=== PATIENT | female | born 1995 | race Caucasian/White ===

== ENCOUNTER 2017-09-06 08:08 | Emergency (ER) | payer OTHER ==
[2017-09-06 08:13] VITALS: BP 118/55; BMI 21.4
[2017-09-06] MEDS ORDERED: NS 1000 ML 1,000 ML IV STA (09:06)
[2017-09-06] MEDS ORDERED: ZOFRAN INJ 4 MG VIAL IVP ONE (09:15)
[2017-09-06] MEDS ORDERED: NS 1000 ML 1,000 ML ONE (09:18)
[2017-09-06] MEDS ORDERED: ZOFRAN INJ 4 MG VIAL ONE (09:19)
[2017-09-06 09:31] LABS: BASOPHILS # (AUTO) 0.1 X10^3/uL (0.0-0.1); BASOPHILS % (AUTO) 1.4 % (0.2-1.0); EOSINOPHILS % (AUTO) 0.5 % (0.9-2.9); LYMPHOCYTES # (AUTO) 1.4 X10^3/uL (1.3-2.9); LYMPHOCYTES % (AUTO) 19.4 % (21.0-51.0); MEAN CORPUSCULAR HEMOGLOBIN 28.9 pg (27.0-34.0); MEAN CORPUSCULAR HGB CONC 35.3 g/dL (33.0-35.0); MEAN CORPUSCULAR VOLUME 81.8 fL (80.0-100.0); MEAN PLATELET VOLUME 8.4 fL (7.4-11.0); MONOCYTES # (AUTO) 0.4 x10^3/uL (0.3-0.8); MONOCYTES % (AUTO) 4.9 % (0.0-13.0); NEUTROPHILS # (AUTO) 5.3 x10^3/uL (2.2-4.8); NEUTROPHILS % (AUTO) 73.8 % (42.0-75.0); PLATELET COUNT 206 X10^3/uL (150.0-450.0); RED BLOOD COUNT 4.16 X10^6/uL (3.5-5.4); RED CELL DISTRIBUTION WIDTH 13.5 % (11.6-16.5); WHITE BLOOD COUNT 7.2 X10^3/uL (3.6-10.0)
--- NOTE | 2017-09-06 09:34 | DR.NAUSEAF ---
HPI - Primary Care Physician Primary Care Physician: NFD - Complaints Chief Complaint:: PT C/O BEING SICK ALL LAST WEEK AND NOT BEING ABLE TO KEEP ANYTHING DOWN FOR THE PAST 4 DAYS AND THAT SHE WAS VOMITTING UP BLOOD LAST NIGHT . - Reviewed Nurses Notes Reviewed: Yes - Source History Provided: Patient - Mode of Arrival Mode of Arrival: Ambulatory - Timing Onset of Chief Complaint: 09/01/17 PMH - PMH Past Medical History: No Past Surgical History: No - Family History History of Family Medical Conditions: Yes Family Medical History: Diabetes Mellitus, Hypertension - Social History Does patient currently use any type of tobacco product: Yes Have you used tobacco products in the last 12 months: Yes Type of Tobacco Use: Cigarettes How many years tobacco product used: 4 Does any household member use tobacco: No Alcohol Use: None Do you use any recreational Drugs:: No Lives With: Family Lives Where: Home - infectious screening In the last 2 months have you had wt loss of >10#?: NO Have you had fever, night sweats or hemotysis?: No Have you traveled outside the country in the last 6 months?: No Isolation: Standard PE - Vital Signs Vitals: Temperature 97.0 F Pulse Rate 86 Respiratory Rate 18 Blood Pressure [Left Arm] 107/62 Blood Pressure 118/55 O2 Sat by Pulse Oximetry 98 ROR - Labs Reviewed Result Diagrams: 09/06/17 09:25 09/06/17 09:25 Laboratory: WBC 7.2 X10^3/uL (3.6-10.0) 09/06/17 09:25 RBC 4.16 X10^6/uL (3.5-5.4) 09/06/17 09:25 Hgb 12.0 g/dL (12.0-16.0) 09/06/17 09:25 Hct 34.0 % (36.0-47.0) L 09/06/17 09:25 MCV 81.8 fL (80.0-100.0) 09/06/17 09:25 MCH 28.9 pg (27.0-34.0) 09/06/17 09:25 MCHC 35.3 g/dL (33.0-35.0) H 09/06/17 09:25 RDW 13.5 % (11.6-16.5) 09/06/17 09:25 Plt Count 206 X10^3/uL (150.0-450.0) 09/06/17 09:25 MPV 8.4 fL (7.4-11.0) 09/06/17 09:25 Neut % 73.8 % (42.0-75.0) 09/06/17 09:25 Lymph % 19.4 % (21.0-51.0) L 09/06/17 09:25 [place] % 4.9 % (0.0-13.0) 09/06/17 09:25 Eos % 0.5 % (0.9-2.9) L 09/06/17 09:25 Baso % 1.4 % (0.2-1.0) H 09/06/17 09:25 Neut # 5.3 x10^3/uL (2.2-4.8) H 09/06/17 09:25 Lymph # 1.4 X10^3/uL (1.3-2.9) 09/06/17 09:25 [place] # 0.4 x10^3/uL (0.3-0.8) 09/06/17 09:25 Eos # 0.0 x10^3/uL (0.0-0.2) 09/06/17 09:25 Baso # 0.1 X10^3/uL (0.0-0.1) 09/06/17 09:25 Absolute Nucleated RBC 0.1 /100WBC 09/06/17 09:25 - Discharge Plan Condition: Stable - Follow ups/Referrals Follow ups/Referrals: NFD,None [Primary Care Provider] - 3 days - Instructions
--- NOTE | 2017-09-06 09:36 | DR.NAUSEAF ---
HPI - Primary Care Physician Primary Care Physician: NFD - HPI Comment HPI Comment: Other family members sick but they're all better now. Mostly [place] with a little diarrhea. Pt states she's , doesn't know how far along. No menses since stopping depo - Complaints Chief Complaint:: PT C/O BEING SICK ALL LAST WEEK AND NOT BEING ABLE TO KEEP ANYTHING DOWN FOR THE PAST 4 DAYS AND THAT SHE WAS VOMITTING UP BLOOD LAST NIGHT . - Reviewed Nurses Notes Reviewed: Yes - Source History Provided: Patient - Mode of Arrival Mode of Arrival: Ambulatory - Timing Onset of Chief Complaint: 09/01/17 (about 1 wk ago) - Duration Duration: 8 d - Severity Number of episodes of vomiting over last 24 hours: 4 - Context Onset: Spontaneous, After Eating Recent: Contact Exposure : Yes Last menstrual period:: see above History of: Contact Exposure - Quality Quality: Bloody - Associated Signs and Symptoms Abdominal Pain Quality: Cramping Abdominal Pain Location: Diffuse Symptoms: Abdominal Pain, Diarrhea - Other History Other History: none, pt believes she's but doesn't know dates PMH - PMH Past Medical History: No Past Medical History Comment: pt denies any sig PMH Past Surgical History: No - Family History History of Family Medical Conditions: Yes Family Medical History: Diabetes Mellitus, Hypertension - Social History Does patient currently use any type of tobacco product: Yes Have you used tobacco products in the last 12 months: Yes Type of Tobacco Use: Cigarettes How many years tobacco product used: 4 Does any household member use tobacco: No Alcohol Use: None Do you use any recreational Drugs:: No Lives With: Family Lives Where: Home - infectious screening In the last 2 months have you had wt loss of >10#?: NO Have you had fever, night sweats or hemotysis?: No Have you traveled outside the country in the last 6 months?: No Isolation: Standard ROS - Review of Systems Constitutional: See HPI, Loss of Appetite. negative: Chills, Fever Eyes: No Symptoms Reported ENTM: No Symptoms Reported Respiratoy: No Symptoms Reported Cardiovascular: No Symptoms Reported Gastrointestinal/Abdominal: Abdominal Pain, Diarrhea, Nausea, Vomiting Genitourinary: No Symptoms Reported Neurological: No Symptoms Reported Musculoskeletal: No Symptoms Reported Integumentary: No Symptoms Reported Hematologic/Lymphatic: No Symptoms Reported Endocrine: No Symptoms Reported Psychiatric: No Symptoms Reported All Other Systems: Reviewed and Negative PE - Vital Signs Vitals: Temperature 97.0 F Pulse Rate 86 Respiratory Rate 18 Blood Pressure [Left Arm] 107/62 Blood Pressure 118/55 O2 Sat by Pulse Oximetry 98 - General Limitations: No Limitations General Appearance: Alert, In No Apparent Distress - Head Head Exam: Normal Inspection - Eyes Eye exam: Normal Appearance - ENT ENT Exam: Normal Exam - Neck Neck Exam: Normal Inspection - Chest Chest Inspection: Normal Inspection - Respiratory Respiratory Exam: Normal Lung Sounds Bilat Respiratory Exam: Bilateral Clear to Auscultation - Cardiovascular Cardiovascular Exam: Regular Rate, Normal Rhythm, Normal Heart Sounds - Abdominal Exam Abdominal Exam: Other (Gravid, fundus almost to umbilicus. Abd exam o/w benign) - Back Back Exam: negative: (R) CVA Tenderness, (L) CVA Tenderness - Neurologic Neurological Exam: Alert, Oriented X3 - Psychiatric Psychiatric Exam: Normal Affect, Normal Mood - Skin Skin Exam: Warm, Dry, Intact, Normal Color ROR - Labs Reviewed Result Diagrams: 09/06/17 09:25 09/06/17 09:25 Laboratory: WBC 7.2 X10^3/uL (3.6-10.0) 09/06/17 09:25 RBC 4.16 X10^6/uL (3.5-5.4) 09/06/17 09:25 Hgb 12.0 g/dL (12.0-16.0) 09/06/17 09:25 Hct 34.0 % (36.0-47.0) L 09/06/17 09:25 MCV 81.8 fL (80.0-100.0) 09/06/17 09:25 MCH 28.9 pg (27.0-34.0) 09/06/17 09:25 MCHC 35.3 g/dL (33.0-35.0) H 09/06/17 09:25 RDW 13.5 % (11.6-16.5) 09/06/17 09:25 Plt Count 206 X10^3/uL (150.0-450.0) 09/06/17 09:25 MPV 8.4 fL (7.4-11.0) 09/06/17 09:25 Neut % 73.8 % (42.0-75.0) 09/06/17 09:25 Lymph % 19.4 % (21.0-51.0) L 09/06/17 09:25 [place] % 4.9 % (0.0-13.0) 09/06/17 09:25 Eos % 0.5 % (0.9-2.9) L 09/06/17 09:25 Baso % 1.4 % (0.2-1.0) H 09/06/17 09:25 Neut # 5.3 x10^3/uL (2.2-4.8) H 09/06/17 09:25 Lymph # 1.4 X10^3/uL (1.3-2.9) 09/06/17 09:25 [place] # 0.4 x10^3/uL (0.3-0.8) 09/06/17 09:25 Eos # 0.0 x10^3/uL (0.0-0.2) 09/06/17 09:25 Baso # 0.1 X10^3/uL (0.0-0.1) 09/06/17 09:25 Absolute Nucleated RBC 0.1 /100WBC 09/06/17 09:25 Sodium 136 mmol/L (136-145) 09/06/17 09:25 Corrected Sodium TNP 09/06/17 09:25 Potassium 3.0 mmol/L (3.5-5.1) L* 09/06/17 09:25 Chloride 101 mmol/L (98-107) 09/06/17 09:25 Carbon Dioxide 23.1 mmol/L (21-32) 09/06/17 09:25 BUN 6 mg/dL (7-18) L 09/06/17 09:25 Creatinine 0.42 mg/dL (0.55-1.02) L 09/06/17 09:25 Est GFR (MDRD) Af Amer > 60 (>60) 09/06/17 09:25 Est GFR (MDRD) Non-Af > 60 (>60) 09/06/17 09:25 Glucose 71 mg/dL (65-99) 09/06/17 09:25 Calcium 8.0 mg/dL (8.5-10.1) L 09/06/17 09:25 Corrected Calcium 9.1 mg/dL (8.5-10.1) 09/06/17 09:25 Total Bilirubin 0.80 mg/dL (0.2-1.0) 09/06/17 09:25 AST 26 Units/L (15-37) 09/06/17 09:25 ALT 21 Units/L (12-78) 09/06/17 09:25 Alkaline Phosphatase 204 Units/L (46-116) H 09/06/17 09:25 Total Protein 7.0 g/dL (6.4-8.2) 09/06/17 09:25 Albumin 2.6 g/dL (3.4-5.0) L 09/06/17 09:25 Globulin 4.4 g/dL (2.5-4.5) 09/06/17 09:25 Albumin/Globulin Ratio 0.6 Ratio (1.1-2.1) L 09/06/17 09:25 Amylase 30 Units/L (25-115) 09/06/17 09:25 Lipase 101 Units/L (73-393) 09/06/17 09:25 - Diagnosis Discharge Problem: Narrative Support Text: Feels better after IVF, Zofran. Nausea gone, pt feels hungry. Pt found to be 34 weeks . Normal US in ER this morning, [employer] 10/15/17. Pt wants to follow with Dr Guzman, will make referral. No care to date. - Discharge Plan Disposition: HOME, SELF-CARE Condition: Stable Prescriptions: Ondansetron [Zofran Odt] 4 mg PO Q8H PRN #12 tab PRN Reason: Nausea/Vomiting - Follow ups/Referrals Follow ups/Referrals: NFD,None [Primary Care Provider] - 3 days - Instructions Instructions: Nausea, Adult, Third Trimester of , [id number] Additional Instructions: PT HAS FLU WITH MARY LOPEZ ON 09/08/17 AT 1030 ,,,, Additional Notes - Additional Notes Additional Notes: d/c home with zofran ODT Rx. Pt urged to keep appt w/Dr Guzman
[2017-09-06 09:40] LABS: BLOOD UREA NITROGEN 6 mg/dL (7-18); CARBON DIOXIDE 23.1 mmol/L (21-32); CHLORIDE 101 mmol/L (98-107); CREATININE 0.42 mg/dL (0.55-1.02); SODIUM 136 mmol/L (136-145); eGFR BLACK RACES > 60 (>60); eGFR NON BLACK RACES > 60 (>60)
[2017-09-06 09:43] LABS: ALANINE AMINOTRANSFERASE 21 Units/L (12-78); ALBUMIN 2.6 g/dL (3.4-5.0); ALKALINE PHOSPHATASE 204 Units/L (46-116); AMYLASE 30 Units/L (25-115); ASPARTATE AMINO TRANSFERASE 26 Units/L (15-37); COR CA(FOR HYPOALB) 9.1 mg/dL (8.5-10.1); LIPASE 101 Units/L (73-393)
--- NOTE | 2017-09-06 10:31 | US ---
HISTORY: Nausea, vomiting, and flu-like symptoms. Study: OB ultrasound greater than 14 weeks Comparison: None. Technique: Multiple grayscale and color flow Doppler images of the pelvis were obtained with focused evaluation of the fetus. Findings: A viable single intrauterine is identified with heart tones of 126 beats per minute. A cephalic presentation is observed with a posterior and fundal placenta. Normal amniotic fluid vol ume is observed. Evaluation of the anatomy including the stomach, kidneys, urinary bladder, and four-chamber heart are unremarkable. The extremities and spine are normal in their sonographic appe arance. A three-vessel cord is observed. No intracranial abnormality can be identified. Value Estimated Gestational Age BPD 8.70 cm 35 weeks 0 days HC 31.2 cm 35 weeks 0 days AC 30.2 cm 34 weeks 1 day FL 6.60 cm 34 weeks 0 days IMPRESSION: A viable single intrauterine with an average ultrasound age of 34 weeks 3 days correspond t o an estimated date of delivery of October 15, 2017. No anatomical abnormalities can be identified. Reported By:
[2017-09-06] MEDS ORDERED: K-DUR TAB 20 MEQ PO ONE (10:50)
[2017-09-06] MEDS ORDERED: K-DUR TAB 20 MEQ PO SCH (11:00)
== END 2017-09-06 10:50 | disposition home or self-care (01) ==
LOC: ER 08:20
DX: R11.2 Nausea with vomiting, unspecified (principal); T75.89XA Other specified effects of external causes, initial encounter; X58.XXXA Exposure to other specified factors, initial encounter; Y93.89 Activity, other specified; Y92.89 Other specified places as the place of occurrence of the external cause
CPT/HCPCS: 36415; 76815; 80053; 82150; 83690; 85025; 96365; 96374; 99282; 99283; A4216; A4222; J2405

== ENCOUNTER 2017-09-22 22:17 | Emergency (ER) | payer OTHER ==
[2017-09-22 22:35] VITALS: BMI 23.6
[2017-09-22 23:04] LABS: BILIRUBIN,URINE NEGATIVE (NEGATIVE); BLOOD/HEMOGLOBIN,URINE NEGATIVE (NEGATIVE); GLUCOSE, URINE NEGATIVE (NEGATIVE); KETONES,URINE NEGATIVE (NEGATIVE); LEUKOCYTE ESTERASE ,URINE 2+ (NEGATIVE); NITRITES,URINE NEGATIVE (NEGATIVE); PROTEIN,URINE NEGATIVE (NEGATIVE); UROBILINOGEN,URINE NORMAL (NORMAL)
[2017-09-22 23:12] LABS: APPEARANCE,URINE CLEAR (CLEAR); COLOR,URINE PALE YELLOW (YELLOW)
[2017-09-22 23:31] VITALS: BP 105/63
--- NOTE | 2017-09-26 09:41 | DR.PREG ---
HPI - PCP Primary Care Physician: MARY - Chief Complaint Chief Complaint:: 36 AND 5 OB G 4 P 3 A O HERE C/O HAVING CONTRACTION EVERY 10 - 15 MINUTES DENIES BLEEDING OR DISCHARGE NO ROM PT PLACED ON [facility] PT STATES" I STARTED HURTING AFTER I ATE - Source History Provided: Patient - Mode of Arrival Mode of Arrival: Ambulatory - Context : 4 Para: 3 - Timing Onset of Chief Complaint: 09/22/17 Pain: None - Duration Pain Strength: Weak PMH - PMH Past Medical History: No Past Surgical History: No - Family History History of Family Medical Conditions: Yes Family Medical History: Diabetes Mellitus, Hypertension - Social History Type of Tobacco Use: Cigarettes Does any household member use tobacco: Yes Do you use any recreational Drugs:: No Lives With: Family Lives Where: Home - infectious screening In the last 2 months have you had wt loss of >10#?: NO Have you had fever, night sweats or hemotysis?: No Have you traveled outside the country in the last 6 months?: No Isolation: Standard PE - Vital Signs Vitals: Temperature 98.1 F Pulse Rate [Left Brachial] 82 Pulse Rate 95 Respiratory Rate 18 Blood Pressure [Left Arm] 105/63 Blood Pressure 110/71 O2 Sat by Pulse Oximetry 100 ROR - Labs Reviewed Laboratory: Specimen Type Clean catch urine 09/22/17 22:31 Urine Color Pale yellow (YELLOW) 09/22/17 22:31 Urine Appearance Clear (CLEAR) 09/22/17 22:31 Urine pH 7.0 (5.0 - 8.0) 09/22/17 22:31 Ur Specific [place] 1.005 (1.000-1.030) 09/22/17 22:31 Urine Protein Negative (NEGATIVE) 09/22/17 22:31 Urine Glucose (UA) Negative (NEGATIVE) 09/22/17 22:31 Urine Ketones Negative (NEGATIVE) 09/22/17 22:31 Urine Occult Blood Negative (NEGATIVE) 09/22/17 22:31 Urine Nitrite Negative (NEGATIVE) 09/22/17 22:31 Urine Bilirubin Negative (NEGATIVE) 02 22:31 Urine Urobilinogen Normal (NORMAL) 09/22/17 22:31 Ur Leukocyte Esterase 2+ (NEGATIVE) 09/22/17 22:31 Urinalysis Comment Dip only ordered 09/22/17 22:31 - Discharge Plan Disposition: 01 HOME, SELF-CARE Condition: Stable - Follow ups/Referrals Follow ups/Referrals: CLARISA HERNANDEZ [Primary Care Provider] - 3 days - Instructions Instructions: Third Trimester of , [id number] Additional Instructions: INCREASE WATER INTAKE. RETURN TO ER WHEN WATER BREAKS, VAGINAL BLEEDING MORE THAN 2 PADS IN A HOUR OR CONTRACTION EVERY 3 - 5 MINUTES OVER A 30 MINUTE PERIOD. CONTRACTION WILL COME STEADY AND CONTINUE TO GET STRONGER IN ACTIVE LABOR. FOLLOW UP WITH DR. HERNANDEZ RETURN TO ER IF ANY OR ALL OF THE ABOVE COMPLAINTS
== END 2017-09-22 23:30 | disposition home or self-care (01) ==
LOC: ER 22:35
DX: O60.03 Preterm labor without delivery, third trimester (principal)
CPT/HCPCS: 81003; 99284

== ENCOUNTER 2017-09-23 09:35 | Emergency (ER) | payer OTHER ==
[2017-09-23 09:40] VITALS: BP 112/69; BMI 23.6
[2017-09-23 10:20] LABS: BILIRUBIN,URINE NEGATIVE (NEGATIVE); BLOOD/HEMOGLOBIN,URINE NEGATIVE (NEGATIVE); GLUCOSE, URINE NEGATIVE (NEGATIVE); KETONES,URINE NEGATIVE (NEGATIVE); LEUKOCYTE ESTERASE ,URINE 2+ (NEGATIVE); NITRITES,URINE NEGATIVE (NEGATIVE); PROTEIN,URINE NEGATIVE (NEGATIVE); UROBILINOGEN,URINE NORMAL (NORMAL)
[2017-09-23 10:26] LABS: APPEARANCE,URINE CLEAR (CLEAR); COLOR,URINE YELLOW (YELLOW)
[2017-09-23 10:34] LABS: AMNISURE ROM TEST NO MEMBRANES RUPTURE (NO RUPTURE)
[2017-09-23 10:39] LABS: RBC,URINE 0-2 /HPF (NEGATIVE)
[2017-09-23 10:40] LABS: BACTERIA,URINE NEGATIVE /HPF (NEGATIVE); SQUAMOUS EPITHELIAL CELL,UR RARE /HPF (NEGATIVE); TRICHOMONAS,URINE FEW /HPF (NEGATIVE)
== END 2017-09-23 10:51 | disposition home or self-care (01) ==
LOC: ER 09:49
DX: M54.5 Low back pain (principal); Z3A.37 37 weeks gestation of pregnancy
CPT/HCPCS: 81001; 84112; 99284

== ENCOUNTER 2017-10-02 15:17 | Emergency (ER) | payer OTHER ==
[2017-10-02 15:23] VITALS: BP 119/79; BMI 22.6
[2017-10-02 15:48] LABS: BILIRUBIN,URINE NEGATIVE (NEGATIVE); BLOOD/HEMOGLOBIN,URINE NEGATIVE (NEGATIVE); GLUCOSE, URINE NEGATIVE (NEGATIVE); KETONES,URINE NEGATIVE (NEGATIVE); LEUKOCYTE ESTERASE ,URINE 2+ (NEGATIVE); NITRITES,URINE NEGATIVE (NEGATIVE); PROTEIN,URINE NEGATIVE (NEGATIVE); UROBILINOGEN,URINE NORMAL (NORMAL)
[2017-10-02 16:01] LABS: APPEARANCE,URINE CLEAR (CLEAR); COLOR,URINE YELLOW (YELLOW); RBC,URINE 0-1 /HPF (NEGATIVE)
[2017-10-02 16:02] LABS: BACTERIA,URINE TRACE /HPF (NEGATIVE); SQUAMOUS EPITHELIAL CELL,UR FEW /HPF (NEGATIVE); TRICHOMONAS,URINE FEW /HPF (NEGATIVE)
--- NOTE | 2017-10-03 02:14 | DR.GENAD ---
HPI - PCP Primary Care Physician: Hernandez - Complaint/Symptoms Chief Complaint:: "My back has been hurting for about a week now. For the past 2 or 3 days I have been having a lot of pressure on and off in my abdomen. I haven't had any bleeding or spotting. I am 38 weeks right now." - Source History Provided: Patient - Mode of Arrival Mode of Arrival: Ambulatory - Timing Onset of Chief Complaint: 09/29/17 PMH - PMH Past Medical History: No Past Surgical History: No Surgical History: No History - Family History History of Family Medical Conditions: Yes Family Medical History: Diabetes Mellitus, Hypertension - Social History Does patient currently use any type of tobacco product: Yes Have you used tobacco products in the last 12 months: Yes Type of Tobacco Use: Cigarettes Does any household member use tobacco: Yes Alcohol Use: None Do you use any recreational Drugs:: No Lives With: Family Lives Where: Home - infectious screening In the last 2 months have you had wt loss of >10#?: NO Have you had fever, night sweats or hemotysis?: No Have you traveled outside the country in the last 6 months?: No Isolation: Standard PE - Vital Signs Vitals: Temperature 96.8 F Pulse Rate 98 Respiratory Rate 18 Blood Pressure [Left Arm] 105/63 Blood Pressure 119/79 O2 Sat by Pulse Oximetry 98 ROR - Labs Reviewed Laboratory: Specimen Type Clean catch urine 10/02/17 15:42 Urine Color Yellow (YELLOW) 10/02/17 15:42 Urine Appearance Clear (CLEAR) 10/02/17 15:42 Urine pH 8.0 (5.0 - 8.0) 10/02/17 15:42 Ur Specific [place] 1.010 (1.000-1.030) 10/02/17 15:42 Urine Protein Negative (NEGATIVE) 10/02/17 15:42 Urine Glucose (UA) Negative (NEGATIVE) 10/02/17 15:42 Urine Ketones Negative (NEGATIVE) 10/02/17 15:42 Urine Occult Blood Negative (NEGATIVE) 10/02/17 15:42 Urine Nitrite Negative (NEGATIVE) 10/02/17 15:42 Urine Bilirubin Negative (NEGATIVE) 10/02/17 15:42 Urine Urobilinogen Normal (NORMAL) 10/02/17 15:42 Ur Leukocyte Esterase 2+ (NEGATIVE) 10/02/17 15:42 Urine RBC 0-1 /HPF (NEGATIVE) 10/02/17 15:42 Urine WBC 0-5 /HPF (NEGATIVE) 10/02/17 15:42 Ur Squamous Epith Cells Few /HPF (NEGATIVE) 10/02/17 15:42 Urine Bacteria Trace /HPF (NEGATIVE) 10/02/17 15:42 Urine Trichomonas Few /HPF (NEGATIVE) 10/02/17 15:42 Ur Culture Indicated? No/not indicated 10/02/17 15:42 - Discharge Plan Disposition: 01 HOME, SELF-CARE Condition: Stable - Follow ups/Referrals Follow ups/Referrals: CLARISA HERNANDEZ [Primary Care Provider] - 3 days - Instructions Instructions: Third Trimester of , [id number] Additional Instructions: 1. Follow up with Dr. Hernandez as scheduled. 2. Return to ED as needed.
== END 2017-10-02 16:35 | disposition home or self-care (01) ==
LOC: ER 15:24
DX: M54.89 Other dorsalgia (principal); Z3A.38 38 weeks gestation of pregnancy
CPT/HCPCS: 81001; 99284

== ENCOUNTER 2017-10-04 23:08 | Emergency (ER) | payer OTHER ==
[2017-10-04 23:17] VITALS: BMI 22.6
[2017-10-04 23:53] LABS: BILIRUBIN,URINE NEGATIVE (NEGATIVE); BLOOD/HEMOGLOBIN,URINE NEGATIVE (NEGATIVE); GLUCOSE, URINE NEGATIVE (NEGATIVE); KETONES,URINE NEGATIVE (NEGATIVE); LEUKOCYTE ESTERASE ,URINE 1+ (NEGATIVE); NITRITES,URINE NEGATIVE (NEGATIVE); PH,URINE 6.5 (5.0 - 8.0); PROTEIN,URINE NEGATIVE (NEGATIVE); UROBILINOGEN,URINE NORMAL (NORMAL)
[2017-10-05 00:14] LABS: APPEARANCE,URINE CLEAR (CLEAR); BACTERIA,URINE NEGATIVE /HPF (NEGATIVE); COLOR,URINE PALE YELLOW (YELLOW); RBC,URINE NONE SEEN /HPF (NEGATIVE); SQUAMOUS EPITHELIAL CELL,UR RARE /HPF (NEGATIVE)
[2017-10-05 01:08] VITALS: BP 106/57
--- NOTE | 2017-10-05 04:31 | DR.PREG ---
HPI - PCP Primary Care Physician: caren - Chief Complaint Chief Complaint:: ; MIKAEL 10/15/17. Patient reports contractions on and off. Saw Dr. Hernandez this morning and stated that patient was 3cm dilated. No complications with . Denies vaginal leakage. - Source History Provided: Patient - Mode of Arrival Mode of Arrival: Ambulatory - Timing Onset of Chief Complaint: 10/04/17 PMH - PMH Past Medical History: No Past Surgical History: No Surgical History: No History - Family History History of Family Medical Conditions: Yes Family Medical History: Diabetes Mellitus, Hypertension - Social History Type of Tobacco Use: Cigarettes Alcohol Use: None Do you use any recreational Drugs:: No Lives With: Family Lives Where: Home - infectious screening In the last 2 months have you had wt loss of >10#?: NO Have you had fever, night sweats or hemotysis?: No Have you traveled outside the country in the last 6 months?: No Isolation: Standard PE - Vital Signs Vitals: Temperature 98 F Pulse Rate [Left Radial] 89 Pulse Rate 92 Respiratory Rate 16 Blood Pressure [Left Arm] 106/57 Blood Pressure 110/75 O2 Sat by Pulse Oximetry 98 ROR - Labs Reviewed Laboratory: Specimen Type Clean catch urine 10/04/17 23:27 Urine Color Pale yellow (YELLOW) 10/04/17 23:27 Urine Appearance Clear (CLEAR) 10/04/17 23:27 Urine pH 6.5 (5.0 - 8.0) 10/04/17 23:27 Ur Specific [place] 1.010 (1.000-1.030) 10/04/17 23:27 Urine Protein Negative (NEGATIVE) 10/04/17 23:27 Urine Glucose (UA) Negative (NEGATIVE) 10/04/17 23:27 Urine Ketones Negative (NEGATIVE) 10/04/17 23:27 Urine Occult Blood Negative (NEGATIVE) 10/04/17 23:27 Urine Nitrite Negative (NEGATIVE) 10/04/17 23:27 Urine Bilirubin Negative (NEGATIVE) 10/04/17 23:27 Urine Urobilinogen Normal (NORMAL) 10/04/17 23:27 Ur Leukocyte Esterase 1+ (NEGATIVE) 10/04/17 23:27 Urine RBC None seen /HPF (NEGATIVE) 10/04/17 23:27 Urine WBC 0-4 /HPF (NEGATIVE) 10/04/17 23:27 Ur Squamous Epith Cells Rare /HPF (NEGATIVE) 10/04/17 23:27 Urine Bacteria Negative /HPF (NEGATIVE) 10/04/17 23:27 Ur Culture Indicated? No/not indicated 10/04/17 23:27 - Discharge Plan Disposition: 01 HOME, SELF-CARE Condition: Stable - Follow ups/Referrals Follow ups/Referrals: CLARISA HERNANDEZ [Primary Care Provider] - 3 days - Instructions Instructions: Third Trimester of , [id number] Additional Instructions: Return to ER for bright red vaginal bleeding,decrease in movement, increase in pain, spontaneous rupture of membranes. KEEP ALL APPOINTMENTS WITH
== END 2017-10-05 01:09 | disposition home or self-care (01) ==
LOC: ER 23:08
DX: O60.03 Preterm labor without delivery, third trimester (principal)
CPT/HCPCS: 81001; 99284

== ENCOUNTER 2017-10-11 12:45 | Inpatient (IN) | payer OTHER ==
[2017-10-11] MEDS ORDERED: LR 1000 ML IV 1,000 ML IV ONE ×3 (12:59→18:13)
[2017-10-11] MEDS ORDERED: AMPICILLIN VIAL 2 GM ONE (13:00)
[2017-10-11] MEDS ORDERED: FENTANYL INJ 100 mcg ONE (13:00)
[2017-10-11] MEDS ORDERED: NS 100 ML IV 100 ML IV ONE ×2 (13:00→17:16)
[2017-10-11] MEDS ORDERED: PITOCIN ONE (13:00)
[2017-10-11] MEDS ORDERED: D5LR 1L W PITOCIN 10 UNITS/L 10 UNITS/1,000 ML BAG IV ONE (13:00)
[2017-10-11] MEDS ORDERED: D5 1/2 NS 1L W PITOCIN 20 UNITS/L 20 UNITS/1,000 ML BAG IV ONE (13:01)
[2017-10-11] MEDS ORDERED: NAROPIN EPIDURAL 0.2% + FENTANYL 90MCG 60 ML EPI ONE (13:01)
[2017-10-11] MEDS ORDERED: D5 1/2 NS 1000 ML 1,000 ML IV ONE (13:01)
[2017-10-11] MEDS ORDERED: PITOCIN IVP ONE (13:20)
[2017-10-11] MEDS ORDERED: D5LR 1L W PITOCIN 10 UNITS/L 10 UNITS/1,000 ML BAG IV PRN (13:20)
[2017-10-11] MEDS ORDERED: NUBAIN INJ 200 MG VIAL MULTIDOSE IVP PRN (13:20)
[2017-10-11 13:39] LABS: BLOOD UREA NITROGEN 6 mg/dL (7-18); CALCIUM 9.2 mg/dL (8.5-10.1); CARBON DIOXIDE 26.5 mmol/L (21-32); CHLORIDE 103 mmol/L (98-107); CREATININE 0.46 mg/dL (0.55-1.02); SODIUM 138 mmol/L (136-145); eGFR BLACK RACES > 60 (>60); eGFR NON BLACK RACES > 60 (>60)
[2017-10-11 13:40] LABS: BASOPHILS # (AUTO) 0.1 X10^3/uL (0.0-0.1); BASOPHILS % (AUTO) 0.5 % (0.2-1.0); EOSINOPHILS # (AUTO) 0.1 x10^3/uL (0.0-0.2); EOSINOPHILS % (AUTO) 1.3 % (0.9-2.9); HEMATOCRIT 33.8 % (36.0-47.0); HEMOGLOBIN 11.9 g/dL (12.0-16.0); LYMPHOCYTES # (AUTO) 2.6 X10^3/uL (1.3-2.9); LYMPHOCYTES % (AUTO) 24.5 % (21.0-51.0); MEAN CORPUSCULAR HEMOGLOBIN 29.2 pg (27.0-34.0); MEAN CORPUSCULAR HGB CONC 35.2 g/dL (33.0-35.0); MEAN CORPUSCULAR VOLUME 83.1 fL (80.0-100.0); MEAN PLATELET VOLUME 9.3 fL (7.4-11.0); MONOCYTES # (AUTO) 0.6 x10^3/uL (0.3-0.8); NEUTROPHILS % (AUTO) 67.7 % (42.0-75.0); PLATELET COUNT 243 X10^3/uL (150.0-450.0); RED BLOOD COUNT 4.07 X10^6/uL (3.5-5.4); RED CELL DISTRIBUTION WIDTH 14.2 % (11.6-16.5); WHITE BLOOD COUNT 10.4 X10^3/uL (3.6-10.0)
[2017-10-11] MEDS ORDERED: D5 1/2 NS 1000 ML 1,000 ML IV SCH (14:00)
[2017-10-11] MEDS ORDERED: AMPICILLIN VIAL 2 GM 2 GM in NS 100 ML IV + SPIKE MINIBAG* 100 ML IV SCH (14:00)
[2017-10-11] MEDS ORDERED: FENTANYL INJ 100 mcg EPI ONE (15:19)
[2017-10-11 15:51] LABS: BILIRUBIN,URINE NEGATIVE (NEGATIVE); BLOOD/HEMOGLOBIN,URINE NEGATIVE (NEGATIVE); GLUCOSE, URINE NEGATIVE (NEGATIVE); KETONES,URINE NEGATIVE (NEGATIVE); LEUKOCYTE ESTERASE ,URINE 1+ (NEGATIVE); NITRITES,URINE NEGATIVE (NEGATIVE); PROTEIN,URINE NEGATIVE (NEGATIVE); UROBILINOGEN,URINE NORMAL (NORMAL)
[2017-10-11] MEDS ORDERED: NAROPIN EPIDURAL 0.2% 60 ML with FENTANYL INJ 100 mcg 90 MCG IVP SCH ×2 (16:00)
[2017-10-11 16:05] LABS: APPEARANCE,URINE SLIGHTLY HAZY (CLEAR); BACTERIA,URINE NEGATIVE /HPF (NEGATIVE); COLOR,URINE YELLOW (YELLOW); RBC,URINE 0-3 /HPF (NONE SEEN); SQUAMOUS EPITHELIAL CELL,UR NEGATIVE /HPF (NEGATIVE)
[2017-10-11 16:06] LABS: TRICHOMONAS,URINE FEW /HPF (NEGATIVE)
[2017-10-11] MEDS ORDERED: AMPICILLIN VIAL 1 GM ONE (17:16)
[2017-10-11] MEDS ORDERED: AMPICILLIN VIAL 1 GM 1 GM in NS 50 ML IV + SPIKE MINIBAG* 50 ML IV SCH (17:24)
[2017-10-11] MEDS: D5 1/2 NS 1000 ML 1,000 ML with PITOCIN 20 UNITS IV SCH ×2 (19:37)
[2017-10-11] MEDS ORDERED: DERMOPLAST SPRAY TOP PRN (19:38)
[2017-10-11] MEDS ORDERED: MILK OF MAGNESIA PO PRN (19:38)
[2017-10-11] MEDS ORDERED: BENADRYL CAP/TAB 25 MG PO PRN (22:08)
[2017-10-11] MEDS: ZANTAC PO SCH (22:18)
[2017-10-12] MEDS: MOTRIN TAB 800 MG PO PRN ×3 (02:44→20:38)
[2017-10-12 05:08] LABS: HEMATOCRIT 28.5 % (36.0-47.0); HEMOGLOBIN 9.9 g/dL (12.0-16.0)
[2017-10-12] MEDS: D5 1/2 NS 1000 ML 1,000 ML with PITOCIN 20 UNITS IV SCH ×6 (05:50→22:41)
[2017-10-12] MEDS: ZANTAC PO SCH ×2 (09:02→20:39)
[2017-10-13] MEDS: D5 1/2 NS 1000 ML 1,000 ML with PITOCIN 20 UNITS IV SCH ×2 (03:47)
[2017-10-13] MEDS: ZANTAC PO SCH (10:42)
[2017-10-13 13:39] VITALS: BP 106/73
== END 2017-10-13 14:30 | disposition home or self-care (01) | DRG 775 ==
LOC: LD 12:45 → MED/SURG 19:53
PROVIDERS: ADMIT Obstetrics & Gynecology Obstetrics; ATTEND Obstetrics & Gynecology Obstetrics
PROC: 10E0XZZ Delivery of Products of Conception, External Approach (ICD-10-PCS; principal; 2017-10-11)
PROC: 10907ZC Drainage of Amniotic Fluid, Therapeutic from Products of Conception, Via Natural or Artificial Opening (ICD-10-PCS; 2017-10-11)
PROC: 3E033VJ Introduction of Other Hormone into Peripheral Vein, Percutaneous Approach (ICD-10-PCS; 2017-10-11)
PROC: 00HU33Z Insertion of Infusion Device into Spinal Canal, Percutaneous Approach (ICD-10-PCS; 2017-10-11)
DX: O36.8130 Decreased fetal movements, third trimester, not applicable or unspecified (principal); O09.33 Supervision of pregnancy with insufficient antenatal care, third trimester; Z37.0 Single live birth; O36.5930 Maternal care for other known or suspected poor fetal growth, third trimester, not applicable or unspecified; Z3A.39 39 weeks gestation of pregnancy; O99.824 Streptococcus B carrier state complicating childbirth; B95.1 Streptococcus, group B, as the cause of diseases classified elsewhere
CPT/HCPCS: 09167; 36415; 59409; 80048; 81001; 85014; 85018; 85025; 86592; 86850; 86900; 86901; A4216; A4222; J0290; J2590; J3010; J7042; J7120

== ENCOUNTER 2018-11-14 23:29 | Inpatient (IN) ==
[2018-11-14 23:42] VITALS: BMI 25.7
[2018-11-15 00:01] LABS: BILIRUBIN,URINE NEGATIVE (NEGATIVE); BLOOD/HEMOGLOBIN,URINE NEGATIVE (NEGATIVE); GLUCOSE, URINE NEGATIVE (NEGATIVE); KETONES,URINE NEGATIVE (NEGATIVE); LEUKOCYTE ESTERASE ,URINE 1+ (NEGATIVE); NITRITES,URINE NEGATIVE (NEGATIVE); PH,URINE 6.5 (5.0 - 8.0); PROTEIN,URINE NEGATIVE (NEGATIVE); UROBILINOGEN,URINE 1+ (NORMAL)
[2018-11-15 00:04] LABS: APPEARANCE,URINE CLEAR (CLEAR); BACTERIA,URINE TRACE /HPF (NEGATIVE); COLOR,URINE YELLOW (YELLOW); MUCUS,URINE FEW /HPF (NEGATIVE); RBC,URINE NONE SEEN /HPF (NONE SEEN); SQUAMOUS EPITHELIAL CELL,UR FEW /HPF (NEGATIVE)
[2018-11-15] MEDS ORDERED: D5 1/2 NS 1000 ML 1,000 ML ONE (00:24)
[2018-11-15] MEDS ORDERED: D5 1/2 NS 1000 ML 1,000 ML IV SCH ×2 (00:25→02:00)
[2018-11-15 00:55] LABS: BASOPHILS # (AUTO) 0.1 X10^3/uL (0.0-0.1); BASOPHILS % (AUTO) 0.7 % (0.2-1.0); EOSINOPHILS # (AUTO) 0.1 x10^3/uL (0.0-0.2); EOSINOPHILS % (AUTO) 0.8 % (0.9-2.9); HEMATOCRIT 30.1 % (36.0-47.0); HEMOGLOBIN 10.5 g/dL (12.0-16.0); LYMPHOCYTES # (AUTO) 1.4 X10^3/uL (1.3-2.9); LYMPHOCYTES % (AUTO) 11.7 % (21.0-51.0); MEAN CORPUSCULAR HEMOGLOBIN 29.1 pg (27.0-34.0); MEAN CORPUSCULAR HGB CONC 34.8 g/dL (33.0-35.0); MEAN CORPUSCULAR VOLUME 83.5 fL (80.0-100.0); MEAN PLATELET VOLUME 8.8 fL (7.4-11.0); MONOCYTES # (AUTO) 0.8 x10^3/uL (0.3-0.8); MONOCYTES % (AUTO) 6.3 % (0.0-13.0); NEUTROPHILS % (AUTO) 80.5 % (42.0-75.0); PLATELET COUNT 232 X10^3/uL (150.0-450.0); RED CELL DISTRIBUTION WIDTH 13.4 % (11.6-16.5); WHITE BLOOD COUNT 12.4 X10^3/uL (3.6-10.0)
[2018-11-15] MEDS ORDERED: D5LR 1L W PITOCIN 10 UNITS/L 0 UNITS/0 ML BAG IV ONE (00:55)
[2018-11-15] MEDS ORDERED: PITOCIN ONE (00:55)
[2018-11-15] MEDS ORDERED: XYLOCAINE 1 % (PLAIN) ONE (00:55)
[2018-11-15] MEDS ORDERED: FENTANYL INJ 100 mcg ONE (00:55)
[2018-11-15] MEDS ORDERED: LR 1000 ML IV 1,000 ML ONE (00:55)
[2018-11-15] MEDS ORDERED: ADRENALINE CHL INJ ONE (00:55)
[2018-11-15] MEDS ORDERED: NAROPIN EPIDURAL 0.2% + FENTANYL 90MCG 60 ML EPI ONE (00:56)
[2018-11-15] MEDS ORDERED: D5 1/2 NS 1L W PITOCIN 20 UNITS/L 20 UNITS/1,000 ML BAG IV ONE (00:56)
[2018-11-15] MEDS ORDERED: XYLOCAINE 2 % (PLAIN) ONE (00:56)
[2018-11-15 01:05] LABS: ALANINE AMINOTRANSFERASE 17 Units/L (12-78); ALBUMIN 2.6 g/dL (3.4-5.0); ALKALINE PHOSPHATASE 167 Units/L (46-116); ASPARTATE AMINO TRANSFERASE 14 Units/L (15-37); BLOOD UREA NITROGEN 7 mg/dL (7-18); CALCIUM 8.9 mg/dL (8.5-10.1); CARBON DIOXIDE 25.3 mmol/L (21-32); CHLORIDE 103 mmol/L (98-107); CREATININE 0.62 mg/dL (0.55-1.02); SODIUM 140 mmol/L (136-145); TOTAL PROTEIN 6.7 g/dL (6.4-8.2); eGFR NON BLACK RACES > 60 (>60)
[2018-11-15] MEDS ORDERED: D5LR 1L W PITOCIN 10 UNITS/L 10 UNITS/1,000 ML BAG IV PRN (01:08)
[2018-11-15] MEDS ORDERED: AMPICILLIN VIAL 2 GRAM ONE (01:11)
[2018-11-15] MEDS ORDERED: NS 100 ML IV 100 ML ONE (01:11)
[2018-11-15] MEDS ORDERED: BICITRA 30 ML ONE (01:28)
[2018-11-15] MEDS ORDERED: AMPICILLIN VIAL 2 GRAM 2 G in NS 100 ML IV + SPIKE MINIBAG* 100 ML IV SCH (02:00)
[2018-11-15] MEDS ORDERED: DERMOPLAST SPRAY TOP PRN (03:39)
[2018-11-15] MEDS ORDERED: MOTRIN TAB 800 MG PO PRN (03:39)
[2018-11-15] MEDS: D5 1/2 NS 1000 ML 1,000 ML with PITOCIN 20 UNITS IV SCH ×8 (04:53→19:18)
[2018-11-15] MEDS ORDERED: AMPICILLIN VIAL 1 GRAM 1 G in NS 50 ML IV + SPIKE MINIBAG* 50 ML IV SCH (05:10)
[2018-11-16 06:57] LABS: HEMATOCRIT 27.6 % (36.0-47.0); HEMOGLOBIN 9.3 g/dL (12.0-16.0)
[2018-11-16] MEDS: D5 1/2 NS 1000 ML 1,000 ML with PITOCIN 20 UNITS IV SCH ×2 (07:05)
[2018-11-16 07:45] VITALS: BP 99/61
== END 2018-11-16 11:30 | disposition home or self-care (01) | DRG 807 ==
LOC: ER 23:32 → LD 11-15 01:06 → MED/SURG 11-15 03:44
PROVIDERS: ADMIT Obstetrics & Gynecology Obstetrics; ATTEND Obstetrics & Gynecology Obstetrics
DX: Z37.0 Single live birth; Z3A.37 37 weeks gestation of pregnancy; O80 Encounter for full-term uncomplicated delivery
CPT/HCPCS: 36415; 59409; 80053; 81001; 85014; 85018; 85025; 86592; 86850; 86900; 86901; 96365; 96367; 99284; A4216; A4222; J0171; J0290; J2590; J3010; J7050; J7120; S5010